=== PATIENT | male | born 1975 | race Caucasian/White ===

== ENCOUNTER → 2017-05-19 | Outpatient (CLI) | payer OTHER ==
[~2017-05-19] MED LIST: IBUP-1223 PO
[2017-05-19 12:15] LABS: BASOPHILS # (AUTO) 0.04 x10^3/uL (0-0.1); BASOPHILS % (AUTO) 1 % (0-1); EOSINOPHILS # (AUTO) 0.22 x10^3/uL (0-0.4); EOSINOPHILS % (AUTO) 3 % (1-7); LYMPHOCYTES # (AUTO) 1.28 x10^3/uL (1-3.4); LYMPHOCYTES % (AUTO) 18 % (22-44); MD NO; MEAN CORPUSCULAR HEMOGLOBIN 29.8 pg (27.5-34.5); MEAN CORPUSCULAR HGB CONC 34.5 g/dL (33.2-36.2); MEAN CORPUSCULAR VOLUME 86.4 fL (81-97); MEAN PLATELET VOLUME 7.3 fL (7.4-10.4); MONOCYTES # (AUTO) 0.61 x10^3/uL (0.2-0.8); MONOCYTES % (AUTO) 8 % (2-9); NEUTROPHILS # (AUTO) 5.06 x10^3/uL (1.8-6.8); NEUTROPHILS % (AUTO) 70 % (42-75); PLATELET COUNT 280 x10^3/uL (130-400); RED BLOOD COUNT 5.59 x10^6/uL (4.38-5.82); RED CELL DISTRIBUTION WIDTH 12.4 % (9.4-14.8)
[2017-05-19 12:24] LABS: INTERNATIONAL NORMALIZED RATIO 1.01 (0.93-1.1); PROTHROMBIN TIME 10.5 Seconds (9.6-11.5)
[2017-05-19 12:28] LABS: ALANINE AMINOTRANSFERASE 37 U/L (12-78); ANION GAP 5 mmol/L (5-15); CALCIUM 9.1 mg/dL (8.5-10.1); CHLORIDE 105 mmol/L (98-107)
[2017-05-19 12:31] LABS: ALKALINE PHOSPHATASE 59 U/L (45-117); BILIRUBIN,TOTAL 1.1 mg/dL (0.2-1.0); CREATININE 1.02 mg/dL (0.7-1.3)
== END | disposition home or self-care (01) ==
LOC: STAR 11:12
PROVIDERS: ATTEND Neurological Surgery
DX: Z01.818 Encounter for other preprocedural examination (principal); M48.061 Spinal stenosis, lumbar region without neurogenic claudication
CPT/HCPCS: 36415; 71046; 80053; 85025; 85610; 85730; 93005

== ENCOUNTER 2017-07-02 05:39 | Inpatient (IN) | payer OTHER ==
[~2017-07-02] VITALS: Ht 190.5 cm; Wt 122.3 kg
[2017-07-02] MEDS ORDERED: LACTATED RINGERS 1,000 ML IV SCH (06:14)
[2017-07-02 06:19] VITALS: BP 137/89
[2017-07-02] MEDS ORDERED: REMIFENTANIL 2 MG ONE (07:05)
[2017-07-02] MEDS ORDERED: ROCURONIUM 10 MG/ML,10ML ONE (07:08)
[2017-07-02] MEDS ORDERED: PROPOFOL 10 MG/ML, 20ML ONE (07:08)
[2017-07-02] MEDS ORDERED: WATER-INJECTION,STERILE 10 ML IV ONE ×4 (07:09)
[2017-07-02] MEDS ORDERED: MIDAZOLAM 1 MG/ML, 2ML ONE (07:19)
[2017-07-02] MEDS ORDERED: PHENYLEPHRINE 10 MG/ML ONE (07:21)
[2017-07-02] MEDS ORDERED: OXYcodone 5 MG/5 ML ORAL.SOL UDC PO PRN (07:30)
[2017-07-02] MEDS ORDERED: MEPERIDINE/PF 25MG/0.5ML IVPush PRN (07:30)
[2017-07-02] MEDS ORDERED: ACETAMINOPHEN 325 MG TABLET PO PRN ×2 (07:30→14:00)
[2017-07-02] MEDS ORDERED: HYDROcodone/APAP 7.5-325MG/15ML UDC PO PRN (07:30)
[2017-07-02] MEDS ORDERED: morphine SULFATE 10 MG/ML, 1ML IV PRN (07:30)
[2017-07-02] MEDS ORDERED: ONDANSETRON 2MG/ML, 2ML IVPush PRN (07:30)
[2017-07-02] MEDS ORDERED: LIDOCAINE-MPF 2% ,5ML ONE (07:36)
[2017-07-02] MEDS ORDERED: BACITRACIN 50,000 UNIT IM ONE ×2 (08:15)
[2017-07-02] MEDS ORDERED: THROMBIN 5,000 UNIT VIAL TP ONE ×2 (08:15)
[2017-07-02] MEDS ORDERED: DEXAMETHASONE 4 MG/ML, 1ML ONE ×2 (08:25)
[2017-07-02] MEDS ORDERED: CEFAZOLIN 1,000 MG ONE ×2 (08:25)
[2017-07-02] MEDS ORDERED: BUPIVACAINE/PF 0.5% INFIL ONE (10:40)
[2017-07-02] MEDS ORDERED: ONDANSETRON 2MG/ML, 2ML ONE (10:53)
[2017-07-02] MEDS ORDERED: HYDROmorphone 2 MG/ML, 1ML ONE ×2 (11:09→12:06)
[2017-07-02] MEDS ORDERED: GLYCOPYRROLATE 0.2MG/1ML, 5ML ONE (11:11)
[2017-07-02] MEDS ORDERED: NEOSTIGMINE 1 MG/ML, 10ML ONE (11:11)
[2017-07-02] MEDS ORDERED: ACETAMINOPHEN 650 MG/20.3 ML UDC ONE (11:43)
[2017-07-02] MEDS ORDERED: OXYcodone 5 MG/5 ML ORAL.SOL UDC ONE (11:44)
[2017-07-02] MEDS ORDERED: MEPERIDINE/PF 50 MG/ML ONE (11:44)
[2017-07-02] MEDS ORDERED: FENTANYL PF 100 MCG/2ML ONE (11:44)
[2017-07-02] MEDS: FENTANYL PF 100 MCG/2ML IV PRN ×2 (11:53→12:05)
[2017-07-02] MEDS ORDERED: METHOCARBAMOL 1000MG/10 ML IVPB ONE (12:30)
[2017-07-02] MEDS: HYDROmorphone 1 MG/ML, 1ML IV PRN ×2 (12:44→13:07)
[2017-07-02] MEDS ORDERED: METHOCARBAMOL 1,000 MG in DEXTROSE 5% 100 ML IV ONE ×2 (13:00→14:00)
[2017-07-02] MEDS ORDERED: METHOCARBAMOL 1,000 MG in DEXTROSE 5% 100 ML IV SCH (13:00)
[2017-07-02] MEDS ORDERED: ONDANSETRON 2MG/ML, 2ML IV PRN (14:00)
[2017-07-02] MEDS ORDERED: BISACODYL 10 MG SUPP PR PRN (14:00)
[2017-07-02] MEDS ORDERED: ACETAMINOPHEN 650 MG SUPP PR PRN (14:00)
[2017-07-02] MEDS ORDERED: HYDROmorphone 2MG TABLET PO PRN (14:00)
[2017-07-02] MEDS ORDERED: PROMETHAZINE 25 MG/ML, 1ML IM PRN (14:00)
[2017-07-02] MEDS: HYDROmorphone 2 MG/ML, 1ML IM PRN ×2 (14:14→20:27)
[2017-07-02] MEDS: NS + 20MEQ KCL 1,000 ML IV SCH (14:49)
[2017-07-02] MEDS: CEFAZOLIN PMX 1GM/50ML 50 ML IVPB SCH (16:41)
[2017-07-02] MEDS: HYDROcodone/APAP 10/325 MG TABLET PO PRN (16:48)
[2017-07-02 18:49] VITALS: BP 101/64
[2017-07-02] MEDS ORDERED: ZOLPIDEM 5MG TABLET PO PRN (21:00)
[2017-07-02] MEDS ORDERED: ALUMINUM/MAG/SIMETHICONE 30 ML UDC PO PRN (21:30)
[2017-07-02] MEDS ORDERED: CALCIUM CARBONATE 500 MG TAB.CHEW PO PRN (21:30)
[2017-07-02] MEDS: METHOCARBAMOL 750 MG in DEXTROSE 5% 100 ML IV SCH (22:07)
[2017-07-03] MEDS: CEFAZOLIN PMX 1GM/50ML 50 ML IVPB SCH (00:05)
[2017-07-03 00:24] VITALS: BP 144/80
[2017-07-03] MEDS: HYDROcodone/APAP 10/325 MG TABLET PO PRN ×5 (02:12→19:50)
[2017-07-03 04:16] VITALS: BP 108/68
[2017-07-03] MEDS: NS + 20MEQ KCL 1,000 ML IV SCH ×2 (05:21→15:58)
[2017-07-03] MEDS: METHOCARBAMOL 750 MG in DEXTROSE 5% 100 ML IV SCH ×3 (06:06→22:12)
[2017-07-03 06:42] VITALS: BP 102/59
[2017-07-03] MEDS: SENNA/DOCUSATE TABLET PO SCH (07:51)
[2017-07-03] MEDS ORDERED: PREGABALIN MC SCH ×2 (08:30)
[2017-07-03] MEDS ORDERED: ENOXAPARIN MC SCH ×2 (08:30)
[2017-07-03] MEDS: PREGABALIN 25 MG CAPSULE PO SCH ×3 (09:52→19:51)
[2017-07-03] MEDS: ENOXAPARIN 30 MG/0.3 ML SQ SCH (12:06)
[2017-07-03 14:00] VITALS: BP 106/68
[2017-07-03] MEDS: DIPHENHYDRAMINE 50 MG/ML, 1ML IVPush PRN (20:03)
[2017-07-03 20:37] VITALS: BP 129/76
[2017-07-04] MEDS: HYDROcodone/APAP 10/325 MG TABLET PO PRN ×5 (00:35→20:57)
[2017-07-04] MEDS: ENOXAPARIN 30 MG/0.3 ML SQ SCH ×2 (00:35→11:17)
[2017-07-04] MEDS: NS + 20MEQ KCL 1,000 ML IV SCH ×2 (00:35→14:30)
[2017-07-04 01:00] VITALS: BP 124/77
[2017-07-04] MEDS: METHOCARBAMOL 750 MG in DEXTROSE 5% 100 ML IV SCH ×2 (05:29→14:18)
[2017-07-04 07:15] VITALS: BP 123/73
[2017-07-04] MEDS ORDERED: DOCU-131 PO (08:48)
[2017-07-04] MEDS ORDERED: HYDR-3307 PO (08:48)
[2017-07-04] MEDS ORDERED: METH750T87 PO (08:48)
[2017-07-04] MEDS ORDERED: PREG100C PO (08:50)
[2017-07-04] MEDS: PREGABALIN 25 MG CAPSULE PO SCH ×3 (09:47→20:57)
[2017-07-04] MEDS: SENNA/DOCUSATE TABLET PO SCH (09:48)
[2017-07-04] MEDS ORDERED: METHOCARBAMOL 750 MG TABLET ONE (11:18)
[2017-07-04 14:40] VITALS: BP 119/73
[2017-07-04 19:59] VITALS: BP 116/58
[2017-07-04] MEDS: METHOCARBAMOL 750 MG TABLET PO SCH (20:57)
[2017-07-04] MEDS: DIPHENHYDRAMINE 50 MG/ML, 1ML IVPush PRN (20:57)
[2017-07-04] MEDS: MAGNESIUM HYDROXIDE 8%, 30ML UDC PO PRN (20:57)
[2017-07-04] MEDS ORDERED: METHOCARBAMOL 750 MG TABLET PO SCH (22:00)
[2017-07-05] MEDS: NS + 20MEQ KCL 1,000 ML IV SCH ×2 (00:29→14:18)
[2017-07-05] MEDS: ENOXAPARIN 30 MG/0.3 ML SQ SCH ×3 (00:29→22:48)
[2017-07-05 00:30] VITALS: BP 109/73
[2017-07-05] MEDS: HYDROcodone/APAP 10/325 MG TABLET PO PRN ×7 (00:47→22:48)
[2017-07-05] MEDS: METHOCARBAMOL 750 MG TABLET PO SCH ×3 (05:51→21:25)
[2017-07-05 06:43] VITALS: BP 116/59
[2017-07-05] MEDS: PREGABALIN 25 MG CAPSULE PO SCH ×3 (10:04→21:25)
[2017-07-05] MEDS: SENNA/DOCUSATE TABLET PO SCH (10:04)
[2017-07-05] MEDS: MAGNESIUM HYDROXIDE 8%, 30ML UDC PO PRN (10:04)
[2017-07-05 13:38] VITALS: BP 125/77
[2017-07-05 14:59] VITALS: BP 141/87
[2017-07-05] MEDS ORDERED: MAGNESIUM CITRATE 300ML ORAL SOL PO PRN (17:30)
[2017-07-05] MEDS ORDERED: METHYLNALTREXONE 12 MG/0.6 ML SQ ONE (17:30)
[2017-07-05 20:00] VITALS: BP 119/72
[2017-07-05] MEDS ORDERED: DIPHENHYDRAMINE 25 MG CAPSULE ONE (21:21)
[2017-07-05] MEDS: DIPHENHYDRAMINE 25 MG CAPSULE PO PRN ×2 (21:25→22:48)
[2017-07-06 01:32] VITALS: BP 119/73
[2017-07-06] MEDS: NS + 20MEQ KCL 1,000 ML IV SCH (01:51)
[2017-07-06] MEDS: HYDROcodone/APAP 10/325 MG TABLET PO PRN ×3 (05:02→12:32)
[2017-07-06] MEDS: METHOCARBAMOL 750 MG TABLET PO SCH (05:02)
[2017-07-06 07:14] VITALS: BP 122/76
[2017-07-06] MEDS: SENNA/DOCUSATE TABLET PO SCH (09:26)
[2017-07-06] MEDS: PREGABALIN 25 MG CAPSULE PO SCH (09:27)
[2017-07-06] MEDS: ENOXAPARIN 30 MG/0.3 ML SQ SCH (11:30)
[2017-07-06 11:32] VITALS: BP 105/69
== END 2017-07-06 12:35 | disposition home or self-care (01) | DRG 455 ==
LOC: ORIP 05:39 → 4NOR 13:42
PROVIDERS: ADMIT Neurological Surgery; ATTEND Neurological Surgery
PROC: 0SG30J1 Fusion of Lumbosacral Joint with Synthetic Substitute, Posterior Approach, Posterior Column, Open Approach (ICD-10-PCS; 2017-07-02)
PROC: 0SG30A0 Fusion of Lumbosacral Joint with Interbody Fusion Device, Anterior Approach, Anterior Column, Open Approach (ICD-10-PCS; 2017-07-02)
PROC: 0SG00J1 Fusion of Lumbar Vertebral Joint with Synthetic Substitute, Posterior Approach, Posterior Column, Open Approach (ICD-10-PCS; 2017-07-02)
PROC: 0SB20ZZ Excision of Lumbar Vertebral Disc, Open Approach (ICD-10-PCS; 2017-07-02)
PROC: 0SB40ZZ Excision of Lumbosacral Disc, Open Approach (ICD-10-PCS; 2017-07-02)
PROC: 01NB0ZZ Release Lumbar Nerve, Open Approach (ICD-10-PCS; 2017-07-02)
PROC: 0SG00A0 Fusion of Lumbar Vertebral Joint with Interbody Fusion Device, Anterior Approach, Anterior Column, Open Approach (ICD-10-PCS; principal; 2017-07-02 07:30)
DX: M51.17 Intervertebral disc disorders with radiculopathy, lumbosacral region (principal); K59.00 Constipation, unspecified; M48.07 Spinal stenosis, lumbosacral region; Z79.899 Other long term (current) drug therapy; Z88.8 Allergy status to other drugs, medicaments and biological substances; M47.817 Spondylosis without myelopathy or radiculopathy, lumbosacral region
CPT/HCPCS: 36415; 72100; 74018; 86850; 86900; C1713; C1776; J0171; J0690; J1100; J1170; J1644; J1650; J2175; J2250; J2405; J2704; J2710; J3010; J3480; J3490; C1762; J1200; J2370; J2800; J7120; Q0163